=== PATIENT | female | born 1990 | race Caucasian/White ===

== ENCOUNTER 2016-12-19 22:26 | Observation (INO) | payer BC ==
--- NOTE | ~2016-12-19 | HP ---
ADMIT: 12/20/2016 RM/LOC: [address] [facility] MR#: [id number] [place], [place] [id number] ABDIEL MIRAMONTES [address] [place] [address] History and Physical SEX: F AGE: 26 : 1990 DATE OF SERVICE: REASON FOR ADMISSION: Flank pain. HISTORY OF PRESENT ILLNESS: The patient is a 26-year-old, 3, para 1-0- 1-1, who presented to Labor and Delivery at 32 and 1/7 weeks' gestation by last menstrual with estimated date of confinement 02/12/2017. The patient presented with sudden onset of right flank and right low back pain. The patient also complained of nausea and vomiting related to the pain. The patient's has been complicated by gestational diabetes, and has recently been started on metformin for this. At the time of admission, the patient denied any contractions, vaginal bleeding, or loss of fluid, and positive movement. LABORATORY DATA: Blood type O positive, antibody screen negative, RPR nonreactive, rubella immune, HIV negative, gonorrhea and chlamydia negative, hep B surface antigen negative. PAST MEDICAL HISTORY: History of OCD, and irritable bowel syndrome. PAST SURGICAL HISTORY: None. CURRENT MEDICATIONS: 1. vitamins daily. 2. Metformin daily. ALLERGIES: NO KNOWN MEDICAL ALLERGIES. FAMILY HISTORY: Father with hypertension. Mother with depression. SOCIAL HISTORY: The patient denies any alcohol, tobacco, or drug use. PHYSICAL EXAMINATION: VITAL SIGNS: On admission, blood pressure 128/88, pulse 90, temperature 97.5, respirations 20. GENERAL: The patient is alert and oriented, in no acute distress. HEART: Regular rate and rhythm without murmurs, gallops, or rubs. LUNGS: Clear to auscultation bilaterally. ABDOMEN: Soft, nontender, gravid. Positive right flank tenderness to palpation. ADMIT: 12/20/2016 RM/LOC: 218 [facility] MR#: [id number] [address] ABDIEL MIRAMONTES [address] [place] [address] History and Physical SEX: F AGE: 26 : 1990 heart tones are in the 140s with moderate variability and accelerations present. Irregular contractions by toco. LABORATORY DATA: Urine 1+ protein, 3+ ketones, 1+ blood. A renal ultrasound is pending. ASSESSMENT AND PLAN: 1. A 26-year-old 3, para 1-0-1-1, at 32 and 1/7 weeks gestation. 2. Suspected urolithiasis. We will obtain renal ultrasound today. We will continue pain control and IV hydration as needed. Charlee Bello MD/ ozzy JOB #: [id number] CC: Charlotte Warner, Attending Physician Charlotte Warner, Family Physician
[2016-12-21] MEDS ORDERED: ZOLOFT100 MG PO (17:03)
[2016-12-21] MEDS ORDERED: GLUCOPHAGE-DPS500 MG PO (17:03)
[2016-12-21] MEDS ORDERED: TYLENOL PO (17:04)
[2016-12-21] MEDS ORDERED: [UNRECOGNIZED DRUG - OTHER] PO (17:04)
[2016-12-21] MEDS ORDERED: PRENATAL VITAM1 EAC6 PO (17:04)
== END 2016-12-20 11:50 | disposition home or self-care (01) ==
LOC: BC 22:26 → 2LDRP 12-20 01:00
PROVIDERS: ADMIT Obstetrics & Gynecology
DX: O47.03 False labor before 37 completed weeks of gestation, third trimester (principal); Z3A.32 32 weeks gestation of pregnancy